=== PATIENT | female | born 2000 | race African-American/Black ===

== ENCOUNTER 2018-04-16 20:44 | Observation (INO) | payer MEDICAID ==
[~2018-04-16] VITALS: Ht 154.9 cm; Wt 64.9 kg
[~2018-04-16 20:44] MED LIST: DOXY1TAB6 PO; MACR100 PO; ONDA4 PO; PREN-154 PO
[2018-04-16 23:48] VITALS: BP 104/59
== END 2018-04-17 00:14 | disposition home or self-care (01) ==
LOC: 4S 20:44
PROVIDERS: ADMIT Obstetrics & Gynecology; ATTEND Obstetrics & Gynecology
DX: O42.913 Preterm premature rupture of membranes, unspecified as to length of time between rupture and onset of labor, third trimester (principal); O62.9 Abnormality of forces of labor, unspecified; O99.89 Other specified diseases and conditions complicating pregnancy, childbirth and the puerperium; M54.5 Low back pain; O26.893 Other specified pregnancy related conditions, third trimester; R10.9 Unspecified abdominal pain; Z3A.30 30 weeks gestation of pregnancy
CPT/HCPCS: 36415; 76805; 81002; 82731; 87086; 89060; G0378

== ENCOUNTER 2018-05-02 21:31 | Observation (INO) | payer MEDICAID ==
[~2018-05-02] VITALS: Ht 154.9 cm; Wt 63.1 kg
[2018-05-02 22:08] VITALS: BP 104/59
== END 2018-05-02 23:00 | disposition home or self-care (01) ==
LOC: 4S 21:31
PROVIDERS: ADMIT Obstetrics & Gynecology; ATTEND Obstetrics & Gynecology
DX: O99.89 Other specified diseases and conditions complicating pregnancy, childbirth and the puerperium (principal); M54.5 Low back pain; O26.893 Other specified pregnancy related conditions, third trimester; R10.9 Unspecified abdominal pain; O46.93 Antepartum hemorrhage, unspecified, third trimester; O42.913 Preterm premature rupture of membranes, unspecified as to length of time between rupture and onset of labor, third trimester; Z3A.32 32 weeks gestation of pregnancy
CPT/HCPCS: 81002; G0378

== ENCOUNTER 2018-05-09 22:02 | Observation (INO) | payer MEDICAID ==
[~2018-05-09] VITALS: Ht 160 cm; Wt 65.4 kg
[2018-05-10] MEDS ORDERED: RINGERS SOLUTION,LACTATED 1,000 ML IV SCH (02:30)
[2018-05-10] MEDS ORDERED: NIFEdipine 10 MG CAPSULE PO ONE (04:15)
== END 2018-05-10 08:15 | disposition home or self-care (01) ==
LOC: 4S 22:02
PROVIDERS: ADMIT Obstetrics & Gynecology; ATTEND Obstetrics & Gynecology
DX: O42.913 Preterm premature rupture of membranes, unspecified as to length of time between rupture and onset of labor, third trimester (principal); O62.9 Abnormality of forces of labor, unspecified; O60.03 Preterm labor without delivery, third trimester; Z3A.33 33 weeks gestation of pregnancy
CPT/HCPCS: 36415; 81002; 82731; 89060; G0378 ×2; J7120

== ENCOUNTER 2018-05-10 19:56 | Inpatient (IN) | payer MEDICAID ==
[~2018-05-10] VITALS: Ht 154.9 cm; Wt 66.2 kg
[2018-05-10 20:08] VITALS: BP 102/64
[2018-05-10 20:30] LABS: APPEARANCE,URINE CLEAR (CLEAR); BILIRUBIN,URINE NEGATIVE (NEGATIVE); GLUCOSE, URINE (UA) NEGATIVE (NEGATIVE); KETONES,URINE TRACE mg/dL (NEGATIVE); LEUKOCYTE ESTERASE ,URINE MODERATE (NEGATIVE); NITRATE,URINE NEGATIVE (NEGATIVE); OCCULT BLOOD,URINE NEGATIVE (NEGATIVE); PH,URINE 6.5 (5.0-8.0); PROTEIN,URINE NEGATIVE (NEGATIVE); UROBILINOGEN,URINE 0.2 mg/dL (<=1.0)
[2018-05-10 20:46] LABS: BACTERIA,URINE Few /HPF (None Seen); RBC,URINE None Seen /HPF (0-2); SQUAMOUS EPITHELIAL CELL,UR Moderate /LPF (None Seen)
[2018-05-10] MEDS: RINGERS SOLUTION,LACTATED 1,000 ML IV SCH (20:49)
[2018-05-10] MEDS: ACETAMINOPHEN/CODEINE 300-30 MG TABLET PO PRN (21:03)
[2018-05-10] MEDS: NIFEdipine 10 MG CAPSULE PO PRN ×2 (21:03→23:18)
[2018-05-10] MEDS ORDERED: CefTRIAXone 1 GM/DEXTROSE 50 ML IV ONE (21:15)
[2018-05-11] MEDS: RINGERS SOLUTION,LACTATED 1,000 ML IV SCH ×3 (05:00→22:09)
[2018-05-11] MEDS: ACETAMINOPHEN/CODEINE 300-30 MG TABLET PO PRN ×3 (05:02→17:31)
[2018-05-11 07:33] LABS: BASOPHILS % (AUTO) 0.5 % (0.0-2.0); EOSINOPHILS % (AUTO) 1.8 % (1.0-6.0); HEMATOCRIT 24.9 % (36-46); HEMOGLOBIN 8.7 g/dL (12.0-16.0); LYMPHOCYTES # (AUTO) 1.5 K/uL (1.0-4.8); LYMPHOCYTES % (AUTO) 28.8 % (22.0-44.0); MEAN CORPUSCULAR HEMOGLOBIN 30.5 pg (26.0-34.0); MEAN CORPUSCULAR VOLUME 87 fL (80-100); MONOCYTES # (AUTO) 0.6 K/uL (0.1-1.0); MONOCYTES % (AUTO) 11.2 % (2.0-9.0); NEUTROPHILS % (AUTO) 57.7 % (40.0-70.0); PLATELET COUNT (AUTO)-OB 188 K/uL (150-450); RED BLOOD CELL COUNT(AUTO) 2.85 MIL/uL (4.00-5.20)
[2018-05-11 07:51] LABS: ANION GAP 12 mmol/L (8-16); CALCIUM, TOTAL 8.5 mg/dL (8.8-10.5); CARBON DIOXIDE 22 mmol/L (22-29); CHLORIDE 104 mmol/L (98-107); CREATININE 0.59 mg/dL (0.60-1.30); GLOMERULAR FILTR. RATE CALC > 60 mL/min (>60); GLUCOSE,RANDOM 72 mg/dL (70-110); POTASSIUM 3.4 mmol/L (3.5-5.1); SODIUM SERUM 138 mmol/L (136-145); UREA NITROGEN, BLOOD 6 mg/dL (7-18)
[2018-05-11 07:58] LABS: ALANINE AMINOTRANSFERASE 23 U/L (12-78); ALBUMIN 2.2 g/dL (3.4-5.0); ALKALINE PHOSPHATASE 149 U/L (46-116); ASPARTATE AMINOTRANSFERASE 21 U/L (15-37); BILIRUBIN,TOTAL 0.3 mg/dL (0.1-1.0)
[2018-05-11] MEDS ORDERED: AMPICILLIN SODIUM 2 GM/NS 100 ML IV ONE (08:30)
[2018-05-11] MEDS: GENTAMICIN 120 MG/NACL ISO-OSM 100 ML IV SCH ×2 (09:36→17:30)
[2018-05-11] MEDS: SOD FERRIC GLUC COMPLX/SUCROSE 125 MG in SODIUM CHLORIDE 0.9% 100 ML IV SCH (10:55)
[2018-05-11] MEDS: AMPICILLIN SODIUM 1 GM/NS 50 ML IV SCH ×2 (15:15→20:44)
[2018-05-12] MEDS: GENTAMICIN 120 MG/NACL ISO-OSM 100 ML IV SCH ×3 (01:19→17:09)
[2018-05-12] MEDS: ACETAMINOPHEN/CODEINE 300-30 MG TABLET PO PRN ×3 (01:25→23:45)
[2018-05-12] MEDS: AMPICILLIN SODIUM 1 GM/NS 50 ML IV SCH ×4 (02:56→21:05)
[2018-05-12] MEDS: NIFEdipine 10 MG CAPSULE PO PRN ×3 (04:16→19:07)
[2018-05-12] MEDS: RINGERS SOLUTION,LACTATED 1,000 ML IV SCH ×2 (04:32→17:09)
[2018-05-12] MEDS: CALCIUM CARBONATE 500 MG CHEWABLE TABLET CHEW PRN ×2 (05:03→23:44)
[2018-05-12] MEDS: SOD FERRIC GLUC COMPLX/SUCROSE 125 MG in SODIUM CHLORIDE 0.9% 100 ML IV SCH (11:23)
[2018-05-13] MEDS: GENTAMICIN 120 MG/NACL ISO-OSM 100 ML IV SCH ×2 (00:49→09:33)
[2018-05-13] MEDS: AMPICILLIN SODIUM 1 GM/NS 50 ML IV SCH ×2 (02:48→09:33)
[2018-05-13] MEDS: NIFEdipine 10 MG CAPSULE PO PRN ×3 (03:48→17:21)
[2018-05-13] MEDS: CALCIUM CARBONATE 500 MG CHEWABLE TABLET CHEW PRN (04:56)
[2018-05-13 06:39] LABS: BASOPHILS % (AUTO) 0.4 % (0.0-2.0); EOSINOPHILS % (AUTO) 2.8 % (1.0-6.0); HEMATOCRIT 23.9 % (36-46); HEMOGLOBIN 8.5 g/dL (12.0-16.0); LYMPHOCYTES # (AUTO) 1.4 K/uL (1.0-4.8); LYMPHOCYTES % (AUTO) 27.3 % (22.0-44.0); MEAN CORPUSCULAR HEMOGLOBIN 30.8 pg (26.0-34.0); MEAN CORPUSCULAR HGB CONC 35.5 G/dL (31.0-37.0); MEAN CORPUSCULAR VOLUME 87 fL (80-100); MONOCYTES # (AUTO) 0.6 K/uL (0.1-1.0); MONOCYTES % (AUTO) 10.9 % (2.0-9.0); NEUTROPHILS # (AUTO) 3.1 K/uL (1.8-7.7); NEUTROPHILS % (AUTO) 58.6 % (40.0-70.0); PLATELET COUNT (AUTO)-OB 197 K/uL (150-450); RED BLOOD CELL COUNT(AUTO) 2.76 MIL/uL (4.00-5.20); RED CELL DISTRIBUTION WIDTH 13.1 % (11.5-14.5)
[2018-05-13] MEDS: ACETAMINOPHEN/CODEINE 300-30 MG TABLET PO PRN ×2 (06:45→23:02)
[2018-05-13] MEDS: RINGERS SOLUTION,LACTATED 1,000 ML IV SCH (13:53)
[2018-05-13] MEDS: SOD FERRIC GLUC COMPLX/SUCROSE 125 MG in SODIUM CHLORIDE 0.9% 100 ML IV SCH (13:54)
[2018-05-14] MEDS: NIFEdipine 10 MG CAPSULE PO PRN (03:56)
[2018-05-14] MEDS: ACETAMINOPHEN/CODEINE 300-30 MG TABLET PO PRN (06:30)
[2018-05-14] MEDS: MAGNESIUM HYDROXIDE SUSPENSION 30 ML UDCUP PO PRN ×2 (08:16→15:41)
[2018-05-14] MEDS ORDERED: ACETAMINOPHEN 325 MG TABLET PO PRN (16:15)
[2018-05-15] MEDS: CALCIUM CARBONATE 500 MG CHEWABLE TABLET CHEW PRN (05:46)
[2018-05-16] MEDS ORDERED: ACET-66 PO (02:08)
== END 2018-05-15 16:15 | disposition home or self-care (01) | DRG 566 ==
LOC: OBSVTOIN 19:58 → 4S 19:58
PROVIDERS: ADMIT Obstetrics & Gynecology; ATTEND Obstetrics & Gynecology
DX: O99.89 Other specified diseases and conditions complicating pregnancy, childbirth and the puerperium (principal); N13.30 Unspecified hydronephrosis; O36.5930 Maternal care for other known or suspected poor fetal growth, third trimester, not applicable or unspecified; Z3A.34 34 weeks gestation of pregnancy
CPT/HCPCS: 76770; 76811; 87086; J0290; J0696; J1580; J2916; J7050; J7120

== ENCOUNTER 2018-05-16 01:42 | Observation (INO) | payer MEDICAID ==
[~2018-05-16] VITALS: Ht 154.9 cm; Wt 67.1 kg
[2018-05-16 02:08] VITALS: BP 112/78
[2018-05-16] MEDS ORDERED: ACET-66 PO (02:08)
[2018-05-16 03:25] LABS: BASOPHILS % (AUTO) 0.9 % (0.0-2.0); EOSINOPHILS % (AUTO) 1.3 % (1.0-6.0); HEMATOCRIT 31.8 % (36-46); HEMOGLOBIN 10.7 g/dL (12.0-16.0); LYMPHOCYTES # (AUTO) 1.5 K/uL (1.0-4.8); LYMPHOCYTES % (AUTO) 21.6 % (22.0-44.0); MEAN CORPUSCULAR HGB CONC 33.7 G/dL (31.0-37.0); MEAN CORPUSCULAR VOLUME 89 fL (80-100); MONOCYTES # (AUTO) 0.5 K/uL (0.1-1.0); MONOCYTES % (AUTO) 7.4 % (2.0-9.0); NEUTROPHILS # (AUTO) 4.9 K/uL (1.8-7.7); NEUTROPHILS % (AUTO) 68.8 % (40.0-70.0); PLATELET COUNT (AUTO)-OB 219 K/uL (150-450); RED BLOOD CELL COUNT(AUTO) 3.58 MIL/uL (4.00-5.20); RED CELL DISTRIBUTION WIDTH 13.3 % (11.5-14.5)
[2018-05-16 04:09] LABS: APPEARANCE,URINE CLEAR (CLEAR); BILIRUBIN,URINE NEGATIVE (NEGATIVE); GLUCOSE, URINE (UA) NEGATIVE (NEGATIVE); KETONES,URINE 40 mg/dL (NEGATIVE); LEUKOCYTE ESTERASE ,URINE NEGATIVE (NEGATIVE); NITRATE,URINE NEGATIVE (NEGATIVE); OCCULT BLOOD,URINE NEGATIVE (NEGATIVE); PROTEIN,URINE NEGATIVE (NEGATIVE); UROBILINOGEN,URINE 0.2 mg/dL (<=1.0)
[2018-05-16 04:27] LABS: BACTERIA,URINE None Seen /HPF (None Seen); RBC,URINE None Seen /HPF (0-2); SQUAMOUS EPITHELIAL CELL,UR Rare /LPF (None Seen); WBC,URINE None Seen /HPF (0-5)
== END 2018-05-16 04:45 | disposition home or self-care (01) ==
LOC: 4S 01:42
PROVIDERS: ADMIT Obstetrics & Gynecology; ATTEND Obstetrics & Gynecology
DX: O26.893 Other specified pregnancy related conditions, third trimester (principal); R10.30 Lower abdominal pain, unspecified; O99.89 Other specified diseases and conditions complicating pregnancy, childbirth and the puerperium; M54.5 Low back pain; Z3A.34 34 weeks gestation of pregnancy
CPT/HCPCS: 36415; 81001; 85025; G0378

== ENCOUNTER 2018-05-20 13:00 | Observation (INO) | payer MEDICAID ==
[~2018-05-20] VITALS: Ht 154.9 cm; Wt 64.0 kg
[~2018-05-20 13:00] MED LIST changes: +ACET-66 PO
[2018-05-20 13:30] VITALS: BP 102/61
== END 2018-05-20 14:10 | disposition home or self-care (01) ==
LOC: 4S 13:00
PROVIDERS: ADMIT Obstetrics & Gynecology; ATTEND Obstetrics & Gynecology
DX: Z34.93 Encounter for supervision of normal pregnancy, unspecified, third trimester (principal); Z3A.35 35 weeks gestation of pregnancy
CPT/HCPCS: 81002; G0378

== ENCOUNTER 2018-05-23 17:57 | Observation (INO) | payer MEDICAID ==
[~2018-05-23] VITALS: Ht 154.9 cm; Wt 65.8 kg
[2018-05-23 18:50] VITALS: BP 105/56
== END 2018-05-23 20:30 | disposition home or self-care (01) ==
LOC: 4S 17:57
PROVIDERS: ADMIT Obstetrics & Gynecology; ATTEND Obstetrics & Gynecology
DX: O26.893 Other specified pregnancy related conditions, third trimester (principal); R10.9 Unspecified abdominal pain; Z3A.35 35 weeks gestation of pregnancy
CPT/HCPCS: 81002; G0378

== ENCOUNTER 2018-05-27 13:15 | Observation (INO) | payer MEDICAID ==
[~2018-05-27] VITALS: Ht 154.9 cm; Wt 63.0 kg
== END 2018-05-27 17:30 | disposition home or self-care (01) ==
LOC: 4S 13:15
PROVIDERS: ADMIT Obstetrics & Gynecology; ATTEND Obstetrics & Gynecology
DX: Z34.93 Encounter for supervision of normal pregnancy, unspecified, third trimester (principal); Z3A.36 36 weeks gestation of pregnancy
CPT/HCPCS: 76811; 81002; G0378

== ENCOUNTER 2018-05-29 14:05 | Observation (INO) | payer MEDICAID ==
[~2018-05-29] VITALS: Ht 154.9 cm; Wt 63.5 kg
[2018-05-29] MEDS ORDERED: RINGERS SOLUTION,LACTATED 1,000 ML IV PRN (15:56)
[2018-05-29] MEDS: BETAMETHASONE SOLUSPAN 6 MG/ML 5 ML VIAL IM SCH (16:30)
[2018-05-29] MEDS: RINGERS SOLUTION,LACTATED 1,000 ML IV SCH ×2 (16:31→23:31)
[2018-05-29] MEDS ORDERED: CALCIUM CARBONATE 500 MG CHEWABLE TABLET CHEW PRN (22:45)
[2018-05-30] MEDS ORDERED: ROPIVACAINE HCL/PF 0.2% 100 ML ED ONE (03:01)
[2018-05-30] MEDS: BETAMETHASONE SOLUSPAN 6 MG/ML 5 ML VIAL IM SCH (04:29)
[2018-05-30 20:13] VITALS: BP 112/57
== END 2018-05-30 09:50 | disposition home or self-care (01) ==
LOC: 4S 14:05
PROVIDERS: ADMIT Obstetrics & Gynecology; ATTEND Obstetrics & Gynecology
DX: O42.913 Preterm premature rupture of membranes, unspecified as to length of time between rupture and onset of labor, third trimester (principal); O62.9 Abnormality of forces of labor, unspecified; Z3A.36 36 weeks gestation of pregnancy
CPT/HCPCS: 81002; 96372 ×2; G0378 ×2; J0702 ×2; J2795; J7120 ×2

== ENCOUNTER 2018-05-30 20:02 | Observation (INO) | payer MEDICAID ==
[~2018-05-30] VITALS: Ht 154.9 cm; Wt 63.5 kg
[2018-05-30 20:25] VITALS: BP 112/59
== END 2018-05-30 22:35 | disposition home or self-care (01) ==
LOC: 4S 20:02
PROVIDERS: ADMIT Obstetrics & Gynecology; ATTEND Obstetrics & Gynecology
DX: O62.9 Abnormality of forces of labor, unspecified (principal); O99.013 Anemia complicating pregnancy, third trimester; O99.89 Other specified diseases and conditions complicating pregnancy, childbirth and the puerperium; M54.9 Dorsalgia, unspecified; Z3A.36 36 weeks gestation of pregnancy
CPT/HCPCS: 81002; G0378

== ENCOUNTER 2018-06-03 14:25 | Observation (INO) | payer MEDICAID ==
[~2018-06-03] VITALS: Ht 154.9 cm; Wt 65.3 kg
[2018-06-03 14:54] VITALS: BP 105/60
== END 2018-06-03 17:12 | disposition home or self-care (01) ==
LOC: 4S 14:25
PROVIDERS: ADMIT Obstetrics & Gynecology; ATTEND Obstetrics & Gynecology
DX: O99.89 Other specified diseases and conditions complicating pregnancy, childbirth and the puerperium (principal); M54.5 Low back pain; Z3A.37 37 weeks gestation of pregnancy
CPT/HCPCS: 76805; 81002; G0378

== ENCOUNTER 2018-07-01 15:32 | Emergency (ER) | payer MEDICAID ==
[~2018-07-01] VITALS: Ht 152.4 cm; Wt 54.5 kg
[~2018-07-01 15:32] MED LIST changes: -ACET-66 PO; -DOXY1TAB6 PO; -MACR100 PO; -ONDA4 PO
[2018-07-01 15:36] VITALS: BP 104/71
[2018-07-01] MEDS ORDERED: ACETAMINOPHEN 500 MG TABLET PO ONE (16:15)
[2018-07-01 16:17] LABS: APPEARANCE,URINE CLOUDY (CLEAR); BILIRUBIN,URINE NEGATIVE (NEGATIVE); GLUCOSE, URINE (UA) NEGATIVE (NEGATIVE); KETONES,URINE NEGATIVE (NEGATIVE); LEUKOCYTE ESTERASE ,URINE SMALL (NEGATIVE); NITRATE,URINE NEGATIVE (NEGATIVE); OCCULT BLOOD,URINE LARGE (NEGATIVE); PROTEIN,URINE TRACE (NEGATIVE)
[2018-07-01 16:23] LABS: BACTERIA,URINE Few /HPF (None Seen); SQUAMOUS EPITHELIAL CELL,UR Many /LPF (None Seen); WBC,URINE 26-50 /HPF (0-5)
[2018-07-01] MEDS ORDERED: NITROFURANTOIN/NITROFURAN MAC 100 MG CAPSULE [MACROBID] PO ONE (16:30)
[2018-07-01] MEDS ORDERED: NAPHAZOLINE/PHENIR 0.025-0.3% 15 ML OPHTHALMIC SOLUTION OD ONE (16:30)
== END 2018-07-01 17:12 | disposition home or self-care (01) ==
LOC: EMS 15:33
DX: N39.0 Urinary tract infection, site not specified (principal); H10.11 Acute atopic conjunctivitis, right eye
CPT/HCPCS: 87086

== ENCOUNTER 2018-10-04 19:36 | Emergency (ER) | payer MEDICAID ==
[~2018-10-04] VITALS: Ht 154.9 cm; Wt 60.9 kg
[2018-10-04 20:51] LABS: GLUCOSE,POINT OF CARE 302 MG/DL (70-110)
[2018-10-04] MEDS ORDERED: ETON68IM3 SD (21:18)
[2018-10-04 22:32] VITALS: BP 111/64
== END 2018-10-04 23:04 | disposition home or self-care (01) ==
LOC: EMS 19:37
DX: S80.861A Insect bite (nonvenomous), right lower leg, initial encounter (principal); W57.XXXA Bitten or stung by nonvenomous insect and other nonvenomous arthropods, initial encounter; Y93.89 Activity, other specified; Y92.89 Other specified places as the place of occurrence of the external cause; Y99.8 Other external cause status

== ENCOUNTER 2021-07-10 08:15 | Emergency (ER) | payer MEDICAID, OTHER ==
[~2021-07-10] VITALS: Ht 154.9 cm; Wt 68.2 kg
[~2021-07-10 08:15] MED LIST changes: +ETON68IM3 SD; -PREN-154 PO
[2021-07-10] MEDS ORDERED: ACETAMINOPHEN 500 MG TABLET PO ONE (09:15)
[2021-07-10 09:28] LABS: EOSINOPHILS % (AUTO) 0.9 % (1.0-6.0); HEMATOCRIT 37.6 % (36-46); HEMOGLOBIN 12.9 g/dL (12.0-16.0); LYMPHOCYTES # (AUTO) 1.3 K/uL (1.0-4.8); LYMPHOCYTES % (AUTO) 25.6 % (22.0-44.0); MEAN CORPUSCULAR HEMOGLOBIN 29.8 pg (26.0-34.0); MEAN CORPUSCULAR HGB CONC 34.2 G/dL (31.0-37.0); MEAN CORPUSCULAR VOLUME 87 fL (80-100); MONOCYTES # (AUTO) 0.4 K/uL (0.1-1.0); MONOCYTES % (AUTO) 7.6 % (2.0-9.0); NEUTROPHILS # (AUTO) 3.2 K/uL (1.8-7.7); NEUTROPHILS % (AUTO) 64.9 % (40.0-70.0); PLATELET COUNT (AUTO) 275 K/uL (150-450); RED BLOOD CELL COUNT(AUTO) 4.32 MIL/uL (4.00-5.20)
[2021-07-10 09:41] LABS: ANION GAP 8 mmol/L (8-16); CALCIUM, TOTAL 8.9 mg/dL (8.8-10.5); CARBON DIOXIDE 25 mmol/L (22-29); CHLORIDE 104 mmol/L (98-107); CREATININE 0.79 mg/dL (0.60-1.30); GLOMERULAR FILTR. RATE CALC > 60 mL/min (>60); GLUCOSE,RANDOM 100 mg/dL (70-110); POTASSIUM 3.9 mmol/L (3.5-5.1); SODIUM SERUM 137 mmol/L (136-145); UREA NITROGEN, BLOOD 11 mg/dL (7-18)
[2021-07-10 09:47] LABS: ALANINE AMINOTRANSFERASE 19 U/L (12-78); ALBUMIN 3.6 g/dL (3.4-5.0); ALKALINE PHOSPHATASE 71 U/L (46-116); ASPARTATE AMINOTRANSFERASE 14 U/L (15-37); BILIRUBIN,TOTAL 0.5 mg/dL (0.1-1.0); LIPASE 36 U/L (73-393); TOTAL PROTEIN, SERUM 7.4 g/dL (6.4-8.2)
[2021-07-10 10:26] LABS: APPEARANCE,URINE HAZY (CLEAR); BILIRUBIN,URINE NEGATIVE (NEGATIVE); GLUCOSE, URINE (UA) NEGATIVE (NEGATIVE); KETONES,URINE NEGATIVE (NEGATIVE); LEUKOCYTE ESTERASE ,URINE LARGE (NEGATIVE); NITRATE,URINE NEGATIVE (NEGATIVE); OCCULT BLOOD,URINE TRACE (NEGATIVE); PH,URINE 5.5 (5.0-8.0); PROTEIN,URINE 30-70 mg/dL (NEGATIVE); SPECIFIC GRAVITIY, URINE 1.033 (1.003-1.030); UROBILINOGEN,URINE <=1.0 mg/dL (<=1.0)
[2021-07-10 10:39] VITALS: BP 113/75
[2021-07-10 10:39] LABS: RBC,URINE 0-2 /HPF (0-2)
[2021-07-10 10:40] LABS: BACTERIA,URINE Moderate /HPF (None Seen); SQUAMOUS EPITHELIAL CELL,UR Many /LPF (None Seen)
[2021-07-10 10:42] LABS: HCG,QUANTITATIVE < 1 mIU/mL (0-6)
[2021-07-10] MEDS ORDERED: CEPHALEXIN MONOHYDRATE 500 MG CAPSULE PO ONE (10:45)
[2021-07-10] MEDS ORDERED: CEPH-558 PO (11:07)
== END 2021-07-10 11:18 | disposition home or self-care (01) ==
LOC: EMS 08:17
DX: N39.0 Urinary tract infection, site not specified (principal); F12.90 Cannabis use, unspecified, uncomplicated; Z86.2 Personal history of diseases of the blood and blood-forming organs and certain disorders involving the immune mechanism
CPT/HCPCS: 76856; 80053; 81001; 83690; 84702; 85025; 87086; 99284

== ENCOUNTER 2024-11-30 16:10 | Emergency (ER) | payer OTHER ==
[~2024-11-30] VITALS: Ht 172.7 cm; Wt 68.2 kg
[~2024-11-30 16:10] MED LIST changes: +CEPH-558 PO; -ETON68IM3 SD; +ETON68IM4 SD
[2024-11-30 16:14] VITALS: BP 103/75; PULSE 105; RESP 18; TEMP 97.9; O2SAT 98
[2024-11-30] MEDS: ERYTHROMYCIN 0.5% 3.5 GM TUBE OPHTHALMIC OINTMENT OU ONE (17:14)
== END 2024-11-30 17:22 | disposition home or self-care (01) ==
LOC: EMS 16:10
DX: O99.891 Other specified diseases and conditions complicating pregnancy (principal); H10.9 Unspecified conjunctivitis; O99.320 Drug use complicating pregnancy, unspecified trimester; F12.90 Cannabis use, unspecified, uncomplicated; L29.9 Pruritus, unspecified; Z3A.23 23 weeks gestation of pregnancy
CPT/HCPCS: 99282; Z7502; Z7610